=== PATIENT | female | born 1995 | race Caucasian/White ===

== ENCOUNTER 2022-10-24 17:59 | Emergency (ER) | payer MEDICAID ==
[~2022-10-24] VITALS: Ht 160 cm; Wt 109.5 kg
[2022-10-24 19:45] LABS: BASOPHILS % (AUTO) 0.8 % (0-1); EOSINOPHILS # (AUTO) 0.3 X10'3 (0-0.9); EOSINOPHILS % (AUTO) 4.5 % (0-6); HEMATOCRIT 40.9 % (35.0-45.0); HEMOGLOBIN 13.1 g/dl (12.0-16.0); LYMPHOCYTES % (AUTO) 34.4 % (21-51); MEAN CORPUSCULAR HEMOGLOBIN 27.1 PG (27.0-31.0); MEAN CORPUSCULAR HGB CONC 32.1 g/dL (33.0-36.5); MEAN CORPUSCULAR VOLUME 84.3 FL (78-98); MEAN PLATELET VOLUME 7.3 FL (7.4-10.4); MONOCYTES # (AUTO) 0.4 X10'3 (0-0.9); MONOCYTES % (AUTO) 6.6 % (2-12); NEUTROPHILS # (AUTO) 3.1 X10'3 (1.8-7.7); NEUTROPHILS % (AUTO) 53.7 % (42-75); PLATELET COUNT 407 X10'3 (140-440); RED BLOOD COUNT 4.85 X10'6 (4.20-5.60); RED CELL DISTRIBUTION WIDTH 15.3 % (11.5-14.5); WHITE BLOOD COUNT 5.7 X10'3 (4.5-11.0)
[2022-10-24 20:01] LABS: ALANINE AMINOTRANSFERASE 8 U/L (12-78); ALBUMIN 2.4 G/DL (3.4-5.0); ALBUMIN/GLOBULIN RATIO 0.4 (1.1-1.5); ALKALINE PHOSPHATASE 109 IU/L (46-116); ANION GAP 17 (8-16); ASPARTATE AMINO TRANSFERASE 10 U/L (10-37); BILIRUBIN,TOTAL 0.2 MG/DL (0.1-1.0); BLOOD UREA NITROGEN 21 MG/DL (7-18); BUN/CREATININE RATIO 16.4 (6.6-38.0); CALCIUM 9.2 MG/DL (8.5-10.1); CHLORIDE 97 MMOL/L (99-107); CREATININE 1.28 MG/DL (0.40-0.90); GLUCOSE 205 MG/DL (70-104); LIPASE 55 U/L (73-393); POTASSIUM 4.7 MMOL/L (3.5-5.1); SODIUM 134 MMOL/L (135-145); TOTAL CARBON DIOXIDE 20.3 MMOL/L (24-32); TOTAL PROTEIN 8.7 G/DL (6.4-8.2); eGFR 51 ML/MIN
[2022-10-24] MEDS ORDERED: normal saline 1000ML IV soln IVB ONE (20:20)
--- NOTE | 2022-10-24 20:57 | NUR ---
Reviewed and agree with Rubi Acosta LPN
--- NOTE | 2022-10-24 21:04 | NUR ---
Pt refuses to have an IV unless it in a specific spot which is the AC however labs were drawn there, RN refuses to fight with the Pt. PA made aware.
[2022-10-24] MEDS ORDERED: LORazepam 2 mg/ml vial IM ONE (21:05)
[2022-10-24 21:07] LABS: CLARITY,URINE SLIGHTLY CLOUDY (Clear); COLOR,URINE YELLOW (Yellow); GLUCOSE, URINE 250 mg/dl (Neg); KETONES,URINE 15 mg/dl (Neg); LEUKOCYTE ESTERASE ,URINE NEGATIVE (Neg); NITRITES, URINE NEGATIVE (Neg); OCCULT BLOOD,URINE LARGE (Neg); PH,URINE 5.5 (4.8-8.0); PROTEIN,URINE >=300 mg/dl (Neg); UROBILINOGEN,URINE 0.2 E.U/dL (0.2-1.0)
[2022-10-24 21:09] LABS: URINE HCG NEGATIVE (NEG)
--- NOTE | 2022-10-24 21:10 | NUR ---
PT REFUSING IV.
[2022-10-24 21:13] LABS: UA COLLECTION TYPE CLN CATCH MIDSTREAM
[2022-10-24 21:17] LABS: BACTERIA,URINE 1+ /HPF (Neg); RBC,URINE 20-50 /HPF (0-2); SQUAMOUS EPITHELIAL CELL,UR FEW /LPF (FEW)
[2022-10-24 21:18] LABS: MUCUS STRANDS FEW /LPF (Neg)
[2022-10-24 21:20] LABS: YEAST FEW /HPF (NEGATIVE)
--- NOTE | 2022-10-24 21:24 | NUR ---
PT REFUSED IM SHOT OF ATIVAN.
[2022-10-24] MEDS ORDERED: LORazepam 0.5 MG tablet PO STA (21:44)
--- NOTE | 2022-10-24 21:48 | NUR ---
PT REFUSING TO KEEP PULSE MONITER AND BLOOD PRESSURE CUFF ON.
--- NOTE | 2022-10-24 22:08 | NUR ---
AT BEDSIDE TO ASSIST CHARLOTTE GARCIA WITH HEMOCULT RECTAL EXAM. PT REFUSED EXAM.
[2022-10-24] MEDS ORDERED: HYDROcodone/acetaminophen 5mg/325mg tablet PO ONE (22:30)
[2022-10-24] MEDS ORDERED: SULF1TAB49 PO (23:07)
[2022-10-24] MEDS ORDERED: sulfamethoxazole/trimethoprim DS (800/160mg) tablet PO ONE (23:10)
[2022-10-24 23:38] VITALS: BP 122/80
== END 2022-10-24 23:39 | disposition home or self-care (01) ==
LOC: ER 18:00
DX: N39.0 Urinary tract infection, site not specified (principal); D73.89 Other diseases of spleen; N20.0 Calculus of kidney; Q44.6 Cystic disease of liver; F17.200 Nicotine dependence, unspecified, uncomplicated; Z88.0 Allergy status to penicillin
CPT/HCPCS: 36415; 74176; 80053; 81001; 81025; 83690; 84484; 85025; 87088; 93005; 99285; J7030

== ENCOUNTER 2022-12-05 19:57 | Emergency (ER) | payer OTHER ==
[~2022-12-05] VITALS: Ht 160 cm; Wt 52.0 kg
[~2022-12-05 19:57] MED LIST: CHOL100046 PO; ERGO500041 PO; HUM7525 SQ; HYDR200T84 PO; LEVO88TA7 PO
[2022-12-05 23:04] LABS: BASOPHILS % (AUTO) 0.7 % (0-1); EOSINOPHILS # (AUTO) 0.2 X10'3 (0-0.9); EOSINOPHILS % (AUTO) 4.2 % (0-6); HEMOGLOBIN 10.1 g/dl (12.0-16.0); MEAN CORPUSCULAR HEMOGLOBIN 26.6 PG (27.0-31.0); MEAN CORPUSCULAR HGB CONC 32.7 g/dL (33.0-36.5); MEAN CORPUSCULAR VOLUME 81.4 FL (78-98); MEAN PLATELET VOLUME 7.2 FL (7.4-10.4); MONOCYTES # (AUTO) 0.2 X10'3 (0-0.9); MONOCYTES % (AUTO) 3.6 % (2-12); NEUTROPHILS # (AUTO) 2.9 X10'3 (1.8-7.7); NEUTROPHILS % (AUTO) 54.5 % (42-75); PLATELET COUNT 272 X10'3 (140-440); RED BLOOD COUNT 3.81 X10'6 (4.20-5.60); RED CELL DISTRIBUTION WIDTH 15.9 % (11.5-14.5); WHITE BLOOD COUNT 5.4 X10'3 (4.5-11.0)
[2022-12-05 23:22] LABS: ALANINE AMINOTRANSFERASE 9 U/L (12-78); ALBUMIN 1.6 G/DL (3.4-5.0); ALBUMIN/GLOBULIN RATIO 0.3 (1.1-1.5); ALKALINE PHOSPHATASE 88 IU/L (46-116); ANION GAP 4 (8-16); ASPARTATE AMINO TRANSFERASE 12 U/L (10-37); BILIRUBIN,TOTAL 0.2 MG/DL (0.1-1.0); BLOOD UREA NITROGEN 15 MG/DL (7-18); BUN/CREATININE RATIO 19.5 (6.6-38.0); C-REACTIVE PROTEIN 0.61 MG/DL (0.0-0.5); CHLORIDE 101 MMOL/L (99-107); CREATINE KINASE 15 U/L (26-192); CREATININE 0.77 MG/DL (0.40-0.90); GLUCOSE 241 MG/DL (70-104); MAGNESIUM 1.7 MG/DL (1.5-2.4); POTASSIUM 4.1 MMOL/L (3.5-5.1); SODIUM 133 MMOL/L (135-145); TOTAL CARBON DIOXIDE 27.9 MMOL/L (24-32); TOTAL PROTEIN 6.5 G/DL (6.4-8.2); eGFR > 90 ML/MIN
[2022-12-05] MEDS ORDERED: acetaminophen 325mg tablet PO ONE (23:40)
[2022-12-05] MEDS ORDERED: ketorolac trometh. 30mg/ml inj. IV ONE (23:40)
[2022-12-06 00:22] VITALS: BP 129/93
== END 2022-12-06 00:32 | disposition home or self-care (01) ==
LOC: ER 19:58
DX: R21 Rash and other nonspecific skin eruption (principal); M79.604 Pain in right leg; M79.605 Pain in left leg; E11.9 Type 2 diabetes mellitus without complications; F15.10 Other stimulant abuse, uncomplicated; Z88.0 Allergy status to penicillin; Z79.899 Other long term (current) drug therapy
CPT/HCPCS: 36415; 80053; 82550; 82948; 83735; 85025; 85651; 86140; 96374; 99283; J1885

== ENCOUNTER 2022-12-09 19:29 | Emergency (ER) | payer OTHER ==
[2022-12-10] MEDS ORDERED: NAPR-56 PO (10:06)
[2022-12-10] MEDS ORDERED: HYDR-3965 PO (10:06)
== END 2022-12-09 20:53 | disposition left against medical advice (07) ==
LOC: ER 19:30
DX: M79.606 Pain in leg, unspecified (principal); Z53.21 Procedure and treatment not carried out due to patient leaving prior to being seen by health care provider

== ENCOUNTER 2022-12-10 | Emergency (ER) | payer MEDICAID, OTHER ==
[~2022-12-10] VITALS: Ht 160 cm; Wt 54.5 kg
[2022-12-10 00:17] VITALS: BP 155/95
[2022-12-10] MEDS ORDERED: ibuprofen 200mg tablet PO ONE (08:40)
[2022-12-10] MEDS ORDERED: HYDROcodone/acetaminophen 5mg/325mg tablet PO ONE (08:40)
[2022-12-10] MEDS ORDERED: HYDR-3965 PO (10:06)
[2022-12-10] MEDS ORDERED: NAPR-56 PO (10:06)
== END 2022-12-10 10:35 | disposition home or self-care (01) ==
LOC: ER 00:01
DX: M25.561 Pain in right knee (principal); M25.562 Pain in left knee; E11.9 Type 2 diabetes mellitus without complications; F17.200 Nicotine dependence, unspecified, uncomplicated; F12.90 Cannabis use, unspecified, uncomplicated; F15.90 Other stimulant use, unspecified, uncomplicated; Z88.0 Allergy status to penicillin; Z79.899 Other long term (current) drug therapy
CPT/HCPCS: 99283

== ENCOUNTER 2022-12-16 18:32 | Emergency (ER) | payer MEDICAID, OTHER ==
[~2022-12-16] VITALS: Ht 160 cm; Wt 49.5 kg
[~2022-12-16 18:32] MED LIST changes: +HYDR-3965 PO; +NAPR-56 PO
[2022-12-16] MEDS ORDERED: metoclopramide 5 mg/ml inj IV ONE (18:45)
[2022-12-16] MEDS ORDERED: normal saline 1000ML IV soln IVB ONE (18:45)
[2022-12-16 18:58] VITALS: BP 153/102
[2022-12-16 19:12] LABS: BASOPHILS # (AUTO) 0.1 X10'3 (0-0.2); BASOPHILS % (AUTO) 1.5 % (0-1); EOSINOPHILS # (AUTO) 0.1 X10'3 (0-0.9); EOSINOPHILS % (AUTO) 1.5 % (0-6); HEMATOCRIT 34.3 % (35.0-45.0); LYMPHOCYTES # (AUTO) 1.6 X10'3 (1.1-4.8); LYMPHOCYTES % (AUTO) 23.7 % (21-51); MEAN CORPUSCULAR HEMOGLOBIN 26.7 PG (27.0-31.0); MEAN CORPUSCULAR HGB CONC 32.1 g/dL (33.0-36.5); MEAN CORPUSCULAR VOLUME 83.2 FL (78-98); MEAN PLATELET VOLUME 7.3 FL (7.4-10.4); MONOCYTES # (AUTO) 0.2 X10'3 (0-0.9); MONOCYTES % (AUTO) 2.4 % (2-12); NEUTROPHILS # (AUTO) 4.8 X10'3 (1.8-7.7); NEUTROPHILS % (AUTO) 70.9 % (42-75); PLATELET COUNT 398 X10'3 (140-440); RED BLOOD COUNT 4.12 X10'6 (4.20-5.60); RED CELL DISTRIBUTION WIDTH 16.1 % (11.5-14.5); WHITE BLOOD COUNT 6.8 X10'3 (4.5-11.0)
[2022-12-16 19:27] LABS: ALANINE AMINOTRANSFERASE 9 U/L (12-78); ALBUMIN 1.8 G/DL (3.4-5.0); ALBUMIN/GLOBULIN RATIO 0.4 (1.1-1.5); ALKALINE PHOSPHATASE 83 IU/L (46-116); ANION GAP 4 (8-16); ASPARTATE AMINO TRANSFERASE 16 U/L (10-37); BILIRUBIN,TOTAL 0.1 MG/DL (0.1-1.0); BLOOD UREA NITROGEN 20 MG/DL (7-18); BUN/CREATININE RATIO 25.3 (6.6-38.0); CALCIUM 8.3 MG/DL (8.5-10.1); CHLORIDE 101 MMOL/L (99-107); CREATININE 0.79 MG/DL (0.40-0.90); GLUCOSE 325 MG/DL (70-104); LIPASE 61 U/L (73-393); POTASSIUM 4.7 MMOL/L (3.5-5.1); SODIUM 132 MMOL/L (135-145); TOTAL CARBON DIOXIDE 27.2 MMOL/L (24-32); TOTAL PROTEIN 6.5 G/DL (6.4-8.2); eGFR 89 ML/MIN
[2022-12-16 19:38] LABS: CLARITY,URINE SLIGHTLY CLOUDY (Clear); COLOR,URINE YELLOW (Yellow); GLUCOSE, URINE 500 mg/dl (Neg); KETONES,URINE NEGATIVE (Neg); LEUKOCYTE ESTERASE ,URINE NEGATIVE (Neg); NITRITES, URINE NEGATIVE (Neg); OCCULT BLOOD,URINE LARGE (Neg); PROTEIN,URINE >=300 mg/dl (Neg); UROBILINOGEN,URINE 0.2 E.U/dL (0.2-1.0)
[2022-12-16 19:45] LABS: URINE AMPHETAMINE SCREEN NEGATIVE (Neg); URINE BARBITUATE SCREEN NEGATIVE (Neg); URINE BENZODIAZEPINES SCREEN NEGATIVE (Neg); URINE CANNABINOID SCREEN POSITIVE (Neg); URINE COCAINE SCREEN NEGATIVE (Neg); URINE METHADONE SCREEN NEGATIVE (Neg); URINE OPIATE SCREEN POSITIVE (Neg); URINE PHENCYCLIDINE SCREEN NEGATIVE (Neg)
[2022-12-16 19:48] LABS: UA COLLECTION TYPE CLN CATCH MIDSTREAM
[2022-12-16 19:50] LABS: BACTERIA,URINE 1+ /HPF (Neg); FINE GRANULAR CAST 0-3 /LPF (NEGATIVE); MUCUS STRANDS FEW /LPF (Neg); SQUAMOUS EPITHELIAL CELL,UR MODERATE /LPF (FEW); TRANSITIONAL EPI CELLS,URINE FEW /HPF; YEAST FEW /HPF (NEGATIVE)
--- NOTE | 2022-12-16 20:30 | NUR ---
agree with [employer]ING [employer] assessment of this patient.
--- NOTE | 2022-12-16 20:35 | NUR ---
Pt refused treatment and eloped out of the department. CHARLOTTE Mejia made aware.
== END 2022-12-16 20:36 | disposition left against medical advice (07) ==
LOC: ER 18:33
DX: R10.30 Lower abdominal pain, unspecified (principal); E11.9 Type 2 diabetes mellitus without complications; F12.90 Cannabis use, unspecified, uncomplicated; F15.20 Other stimulant dependence, uncomplicated; Z88.0 Allergy status to penicillin
CPT/HCPCS: 36415; 80053; 80305; 81001; 82948; 83690; 85025; 87088; 99283; J7030

== ENCOUNTER 2022-12-25 20:12 | Emergency (ER) | payer MEDICAID, OTHER ==
[~2022-12-25] VITALS: Ht 160 cm; Wt 50.0 kg
[~2022-12-25 20:12] MED LIST changes: -CHOL100046 PO; +CITA20TA28 PO; -HUM7525 SQ; +HYDR-3964 PO; -HYDR-3965 PO; +INSU10VI SQ; +METO-292 PO; -NAPR-56 PO; +NAPR-996 PO
[2022-12-25] MEDS: normal saline 1000ML IV soln IVB ONE ×2 (22:05→23:19)
--- NOTE | 2022-12-25 22:15 | NUR ---
I agree with Nick Hill assessment.
[2022-12-25] MEDS ORDERED: acetaminophen 325mg tablet PO ONE (22:25)
[2022-12-25] MEDS ORDERED: ketorolac trometh. 30mg/ml inj. IV ONE (22:25)
[2022-12-25 22:42] LABS: BASOPHILS % (AUTO) 0.3 % (0-1); EOSINOPHILS % (AUTO) 0 % (0-6); HEMATOCRIT 26.1 % (35.0-45.0); HEMOGLOBIN 8.4 g/dl (12.0-16.0); LYMPHOCYTES # (AUTO) 0.6 X10'3 (1.1-4.8); LYMPHOCYTES % (AUTO) 8.2 % (21-51); MEAN CORPUSCULAR HEMOGLOBIN 26.9 PG (27.0-31.0); MEAN CORPUSCULAR HGB CONC 32.3 g/dL (33.0-36.5); MEAN CORPUSCULAR VOLUME 83.4 FL (78-98); MEAN PLATELET VOLUME 7.7 FL (7.4-10.4); MONOCYTES # (AUTO) 0.2 X10'3 (0-0.9); MONOCYTES % (AUTO) 2.1 % (2-12); NEUTROPHILS # (AUTO) 6.5 X10'3 (1.8-7.7); NEUTROPHILS % (AUTO) 89.4 % (42-75); PLATELET COUNT 154 X10'3 (140-440); RED BLOOD COUNT 3.13 X10'6 (4.20-5.60); RED CELL DISTRIBUTION WIDTH 15.7 % (11.5-14.5); WHITE BLOOD COUNT 7.3 X10'3 (4.5-11.0)
[2022-12-25 22:57] LABS: ALANINE AMINOTRANSFERASE 7 U/L (12-78); ALBUMIN 1.2 G/DL (3.4-5.0); ALBUMIN/GLOBULIN RATIO 0.3 (1.1-1.5); ALKALINE PHOSPHATASE 113 IU/L (46-116); ANION GAP 9 (8-16); ASPARTATE AMINO TRANSFERASE 12 U/L (10-37); BILIRUBIN,TOTAL 0.2 MG/DL (0.1-1.0); BLOOD UREA NITROGEN 16 MG/DL (7-18); BUN/CREATININE RATIO 8.4 (6.6-38.0); CALCIUM 7.5 MG/DL (8.5-10.1); CHLORIDE 94 MMOL/L (99-107); LIPASE < 50 U/L (73-393); MAGNESIUM 1.1 MG/DL (1.5-2.4); POTASSIUM 3.5 MMOL/L (3.5-5.1); SODIUM 124 MMOL/L (135-145); TOTAL CARBON DIOXIDE 20.7 MMOL/L (24-32); TOTAL PROTEIN 5.2 G/DL (6.4-8.2); eGFR 32 ML/MIN
[2022-12-25 23:07] LABS: GLUCOSE 539 MG/DL (70-104)
[2022-12-25] MEDS ORDERED: insulin regular, human 10 units/0.1 ml syringe IV ONE (23:20)
[2022-12-25] MEDS ORDERED: normal saline 1000ML IV soln IVB ONE (23:20)
[2022-12-26 00:34] VITALS: BP 90/49
== END 2022-12-26 00:37 | disposition home or self-care (01) ==
LOC: ER 20:13
DX: E11.65 Type 2 diabetes mellitus with hyperglycemia (principal); M79.604 Pain in right leg; M79.605 Pain in left leg; F12.90 Cannabis use, unspecified, uncomplicated; F15.20 Other stimulant dependence, uncomplicated; Z88.0 Allergy status to penicillin
CPT/HCPCS: 36415; 80053; 82948; 83690; 83735; 85025; 96374; 96375; 99284; J1815; J1885; J7030